=== PATIENT | male | born 1990 | race Caucasian/White ===

== ENCOUNTER → 2018-11-09 | Outpatient (CLI) | payer BC ==
--- NOTE | 2018-11-09 14:29 | Diagnostic Imaging Report ---
INDICATION: Left hand pain. AP and lateral views of left hand are obtained. There is irregularity of the base of the fourth distal phalanx on the lateral view which appears to be chronic. Correlate for tenderness in this area. Remaining bony structures appear unremarkable. Joint spaces are normal. IMPRESSION: Irregularity of the fourth distal phalanx near the DIP joint, which is probably chronic, correlate for site of pain. No other abnormal findings. Dictated by: Dictated on workstation # [id number]
== END ==
LOC: RAD FS 14:11
PROVIDERS: ATTEND Family Medicine
DX: M79.642 Pain in left hand (principal)
CPT/HCPCS: 73120